=== PATIENT | male | born 1965 | race Caucasian/White ===

== ENCOUNTER 2016-08-29 15:59 | Emergency (ER) | payer BC ==
--- NOTE | 2016-08-29 16:02 | PDOC ---
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 The patient reports that he was at a bar where he went to step backwards and lost his balance, but caught himself from falling. He reports that he had one drink at the bar. He reports that the bar called the ambulance. He denies falling, head trauma, or pain. Patient denies dizziness, blurry vision, or double vision. Patient denies shortness of breath, chest pain, or palpitations. Patient denies nausea, or vomiting. <Jasmin Emerson - Last Filed: 08/29/16 16:09> <Hugh Lynn - Last Filed: 08/29/16 16:28> - General Chief Complaint: Lightheaded Stated Complaint: DIZZY Time Seen by Provider: 08/29/16 16:02 Past History <Jasmin Emerson - Last Filed: 08/29/16 16:09> - Past Medical History Anemia: No Asthma: No Cancer: No Cardiac Disorders: No CVA: No COPD: No CHF: No DVT: Yes Dementia: No Diabetes: No GI Disorders: No Disorders: No HTN: Yes Hypercholesterolemia: No Liver Disease: No Seizures: No Thyroid Disease: Yes - Psycho/Social/Smoking Cessation Hx Anxiety: No Suicidal Ideation: No Smoking Status: No Smoking History: Never smoked Have you smoked in the past 12 months: No Number of Cigarettes Smoked Daily: 0 Hx Alcohol Use: Yes Drug/Substance Use Hx: No Substance Use Type: Alcohol Hx Substance Use Treatment: No <Hugh Lynn - Last Filed: 08/29/16 16:28> - Past Medical History Allergies/Adverse Reactions: Allergies Allergy/AdvReac Type Severity Reaction Status Date / Time No Known Allergies Allergy Verified 08/29/16 16:01 Home Medications: Ambulatory Orders Warfarin Na [Coumadin] 5 mg PO ASDIR 08/22/11 Atenolol [Tenormin] 50 mg PO DAILY 05/31/16 Losartan Potassium [Cozaar] 100 mg PO DAILY 05/31/16 Review of Systems - Review of Systems Able to Perform ROS?: Yes Comments:: 08/29/16 16:10 CONSTITUTIONAL: Absent: fever, no chills, no fatigue EYES: Absent: visual changes ENT: Absent: ear pain, no sore throat CARDIOVASCULAR: Absent: chest pain, no palpitations RESPIRATORY: Absent: cough, no SOB GI: Absent: abdominal pain, no nausea, no vomiting, no constipation, no diarrhea GENITOURINARY: Absent: dysuria, no frequency, no hematuria MUSCULOSKELETAL: Absent: back pain, no arthralgia, no myalgia SKIN: Absent: rash <Jasmin Emerson - Last Filed: 08/29/16 16:09> *Physical Exam - Vital Signs Last Vital Signs Temp Pulse Resp BP Pulse Ox 97.7 F 81 16 132/79 100 08/29/16 16:01 08/29/16 16:01 08/29/16 16:01 08/29/16 16:01 08/29/16 16:01 - Physical Exam Comments: 08/29/16 16:10 GENERAL: Well-appearing, well-nourished. No apparent distress. HEENT: Normocephalic, atraumatic. PERRL, EOM intact. CARDIOVASCULAR: Normal S1, S2. Regular rate and rhythm. PULMONARY: Clear to auscultation bilaterally. ABDOMEN: Soft, non-distended, non-tender. EXTREMITIES: Normal ROM in all four extremities. No gross deformities. SKIN: Warm, dry. No rash NEUROLOGICAL: No focal neurological deficits. <Jasmin Emerson - Last Filed: 08/29/16 16:09> Medical Decision Making - Medical Decision Making 08/29/16 16:07 The patient is well-appearing and in no acute distress He very clearly relates that he simply lost his balance when stepping backward The sensation of losing his balance was extremely brief, and seems clearly related to a misstep He clearly denies "dizziness," vertigo, lightheadedness, focal weakness or paresthesias, palpitations, chest pain, shortness of breath He feels that he is "fine" and would like to go home Vital signs noted He has a nonfocal neurological exam and no abnormalities elsewhere on physical examination Clinical impression: Near fall I discussed the physical exam findings, ancillary test results and final diagnoses with the patient. I answered all of the patient's questions. The patient was satisfied with the care received and felt comfortable with the discharge plan and treatment plan. The patient will call their primary care physician within 24 hours to arrange follow-up and will return to the Emergency Department with any new, persistent or worsening symptoms. A portion of this note was documented by scribe services under my direction. I have reviewed the details of the note, within reason, and agree with the documentation with the following case summary and management plan written by me. 08/29/16 16:28 I had an extensive conversation with the patient's daughter and He is currently undergoing a workup with his primary care physician for weight loss and abdominal discomfort He had a recent CT, ultrasound and labs and has an appointment for follow-up on Wednesday. The patient's symptoms have been chronic, and are unchanged. Both the patient, the daughter, and the do not want further workup at this time, and can follow-up with Dr. Austin on Wednesday. <Hugh Lynn - Last Filed: 08/29/16 16:28> *DC/Admit/Observation/Transfer - Attestations Scribe Attestion: 08/29/16 16:10 Documentation prepared by Jasmin Emerson, acting as medical psychotherapist for Hugh Lynn MD. <Jasmin Emerson - Last Filed: 08/29/16 16:09> <Hugh Lynn - Last Filed: 08/29/16 16:28> Diagnosis at time of Disposition: Loss of balance - Discharge Dispostion Disposition: HOME Condition at time of disposition: Stable - Referrals Referrals: Rafa Caceres MD [Primary Care Provider] - - Patient Instructions Printed Discharge Instructions: How to Prevent Falls Additional Instructions: Return to the emergency department immediately with ANY new, persistent or worsening symptoms. You MUST call and follow up with your doctor tomorrow. Please make sure your doctor reviews the results of your emergency department evaluation. - Post Discharge Activity Work/School Note: Back to Work
[2016-08-29 16:05] VITALS: BP 132/79; PULSE 81; TEMP 97.7; BMI 25.8
== END 2016-08-29 16:45 | disposition home or self-care (01) ==
LOC: FER 15:59
DX: R26.81 Unsteadiness on feet (principal); I10 Essential (primary) hypertension; Z86.718 Personal history of other venous thrombosis and embolism; Z79.01 Long term (current) use of anticoagulants; Z86.711 Personal history of pulmonary embolism; E07.9 Disorder of thyroid, unspecified
CPT/HCPCS: 99282-25

== ENCOUNTER 2019-07-10 08:03 | Day surgery (SDC) | payer BC ==
[2019-07-07 13:01] VITALS: BMI 27.3
[2019-07-10 08:29] VITALS: TEMP 98.2
[2019-07-10] MEDS ORDERED: LIDOCAINE HCL/PF 2% SDV 5ML VIAL ONE (08:31)
[2019-07-10] MEDS ORDERED: PROPOFOL 20 ML ONE ×4 (08:31)
[2019-07-10 10:02] VITALS: BP 121/71; PULSE 80
== END 2019-07-10 10:05 | disposition home or self-care (01) ==
LOC: FASU-ENDO 08:03
PROVIDERS: ATTEND Internal Medicine Gastroenterology
PROC: 0DJD8ZZ Inspection of Lower Intestinal Tract, Via Natural or Artificial Opening Endoscopic (ICD-10-PCS; principal; 2019-07-10 09:12)
DX: Z86.010 Personal history of colon polyps (principal); K57.30 Diverticulosis of large intestine without perforation or abscess without bleeding

== ENCOUNTER 2020-08-31 22:06 | Emergency (ER) | payer BC ==
[2020-08-31 22:18] VITALS: BP 162/94; PULSE 106; TEMP 98.8; BMI 27.3
[2020-09-01] MEDS ORDERED: DIPHTH,PERTUSS(ACELL),TET 0.5 ML DISP.SYRIN IM ONE ×2 (00:05→00:08)
== END 2020-09-01 00:16 | disposition home or self-care (01) ==
LOC: FER 22:06
PROC: 3E0234Z Introduction of Serum, Toxoid and Vaccine into Muscle, Percutaneous Approach (ICD-10-PCS; principal; 2020-09-01)
DX: S02.2XXA Fracture of nasal bones, initial encounter for closed fracture (principal); S02.19XA Other fracture of base of skull, initial encounter for closed fracture; S00.81XA Abrasion of other part of head, initial encounter; F10.10 Alcohol abuse, uncomplicated
CPT/HCPCS: 70450-TC; 70486-TC; 90715; 99284-25